=== PATIENT | male | born 1960 | race Caucasian/White ===

== ENCOUNTER 2019-01-24 05:26 | Emergency (ER) | payer BC, OTHER ==
[2019-01-24] MEDS: EPINEPHrine 0.3 MG/0.3 ML Pen Autoinjector IM ONE (05:52)
--- NOTE | 2019-01-24 05:53 | EDM.PDOC ---
ED HPI GENERAL MEDICAL PROBLEM - General Chief Complaint: General Stated Complaint: mouth swelling, lips, toungue Time Seen by Provider: 01/24/19 05:45 Source of Information: Reports: Patient History Limitations: Reports: No Limitations - History of Present Illness INITIAL COMMENTS - FREE TEXT/NARRATIVE: Patient is a 58-year-old who presented to the emergency room from [facility] secondary to swelling of the lower lip tongue and cheek patient states that this was noted by his coworkers and given 3 Benadryl's about an hour prior to transfer here the Benadryl did not seem to have any effect on it. So his supervisor grips decided to send him to the hospital for evaluation and treatment patient denies any allergies to any medication other than penicillin and tramadol patient denies taking any of this and says that today was a routine day for him he did not do anything different prior to going to work. Onset: Sudden Duration: Hour(s):, Getting Worse Location: Reports: Face Severity: Moderate Worsens with: Reports: None Treatments [employer]E [employer]ER: Reports: Other Medication(s) Other Treatments CONE CLE[employer]ER: benadryl 75mg - Related Data Allergies Allergy/AdvReac Type Severity Reaction Status Date / Time Penicillins Allergy Other Verified 01/24/19 05:29 tramadol AdvReac Nausea Verified 01/24/19 05:29 Home Meds: Home Meds Lisinopril 5 - 10 mg PO DAILY 10/08/14 [History] Cyclobenzaprine [Flexeril] 10 mg PO TID PRN #30 tablet 11/03/15 [Rx] Citalopram [Celexa] 20 mg PO DAILY 01/23/16 [History] Diazepam [Valium] 10 mg PO BID PRN 01/23/16 [History] Cephalexin [Keflex] 500 mg PO BID 5 Days #10 capsule 05/12/17 [Rx] predniSONE [Prednisone] 20 mg PO Q6HR 5 Days #20 tablet 01/24/19 [Rx] Past Medical History HEENT History: Reports: Impaired Vision, Other (See Below) Other HEENT History: Trifocals Cardiovascular History: Reports: Hypertension, Other (See Below) Other Cardiovascular History: Patient does not know his cholesterol status Respiratory History: Reports: None Gastrointestinal History: Reports: None Genitourinary History: Reports: None Musculoskeletal History: Reports: Back Pain, Chronic, Gout, Osteoarthritis, Other (See Below) Psychiatric History: Reports: Anxiety, Depression Endocrine/Metabolic History: Reports: None Hematologic History: Reports: None Immunologic History: Reports: None Oncologic (Cancer) History: Reports: None - Infectious Disease History Infectious Disease History: Reports: Chicken Pox, Measles, Mumps - Past Surgical History Head Surgeries/Procedures: Reports: None HEENT Surgical History: Reports: Oral Surgery, Other (See Below) GI Surgical History: Reports: Hernia, Abdominal, Hernia, Inguinal, Other (See Below) Male Surgical History: Reports: Circumcision, Other (See Below) Neurological Surgical History: Reports: None Musculoskeletal Surgical History: Reports: Arthroscopic Procedure, Shoulder Surgery, Other (See Below) Dermatological Surgical History: Reports: None - Past Imaging History Past Imaging History: Reports: None Social & Family History - Tobacco Use Smoking Status *Q: Former Smoker Used Tobacco, but Quit: Yes Month/Year Tobacco Last Used: 1994 - Caffeine Use Caffeine Use: Reports: None - Recreational Drug Use Recreational Drug Use: No - Living Situation & Occupation Living situation: Reports: , Alone Occupation: Employed ED ROS GENERAL - Review of Systems Review Of Systems: See Below HEENT: Reports: Other (Swelling of face left lower lip tongue and cheek) Respiratory: Reports: No Symptoms Cardiovascular: Reports: No Symptoms Endocrine: Reports: No Symptoms GI/Abdominal: Reports: No Symptoms : Reports: No Symptoms Musculoskeletal: Reports: No Symptoms Skin: Reports: No Symptoms Neurological: Reports: No Symptoms Psychiatric: Reports: No Symptoms Hematologic/Lymphatic: Reports: No Symptoms Immunologic: Reports: No Symptoms ED EXAM, GENERAL - Physical Exam Exam: See Below Exam Limited By: No Limitations General Appearance: Alert, WD/WN, No Apparent Distress Ears: Normal External Exam, Normal Canal, Hearing Grossly Normal, Normal TMs Ear Exam: Bilateral Ear: Auricle Normal, Canal Normal, TM normal Nose: Normal Inspection, Normal Mucosa, No Blood Throat/Mouth: No Airway Compromise, Inflammation (Lower lip called and cheek). No: Normal Lips Head: Atraumatic, Normocephalic Neck: Normal Inspection, Supple, Non-Tender, Full Range of Motion Respiratory/Chest: No Respiratory Distress, Lungs Clear, Normal Breath Sounds, No Accessory Muscle Use, Chest Non-Tender Cardiovascular: Normal Peripheral Pulses, Regular Rate, Rhythm, No Edema, No Gallop, No JVD, No Murmur, No Rub GI/Abdominal: Normal Bowel Sounds, Soft, Non-Tender, No Organomegaly, No Distention, No Abnormal Bruit, No Mass (Male) Exam: Deferred Rectal (Males) Exam: Deferred Back Exam: Normal Inspection, Full Range of Motion, NT Extremities: Normal Inspection, Normal Range of Motion, Non-Tender, Normal Capillary Refill, No Pedal Edema Neurological: Alert, Oriented, CN II-XII Intact, Normal Cognition, Normal Gait, Normal Reflexes, No Motor/Sensory Deficits Psychiatric: Normal Affect, Normal Mood Skin Exam: Warm, Dry, Intact, Normal Color, No Rash Lymphatic: No Adenopathy Course - Vital Signs Last Recorded V/S: Last Vital Signs Temp 97.8 F 01/24/19 06:08 Pulse 65 01/24/19 07:02 Resp 16 01/24/19 07:02 BP 103/64 01/24/19 06:08 Pulse Ox 95 01/24/19 07:02 - Orders/Labs/Meds Labs: Laboratory Tests 01/24/19 Range/Units 05:55 WBC 6.0 (4.0-10.2) K/uL RBC 3.90 L (4.33-5.41) M/uL Hgb 12.5 L (13.1-16.8) g/dL Hct 37.3 L (39.0-49.0) % MCV 95.6 (84.0-98.0) fL MCH 32.1 (28.2-33.3) pg MCHC 33.5 (31.7-36.0) g/dL RDW 12.6 (11.2-14.1) % Plt Count 113 L (150-350) K/uL Neut % (Auto) 57.4 (45.0-80.0) % Lymph % (Auto) 30.6 (10.0-50.0) % [place] % (Auto) 8.8 (2.0-14.0) % Eos % (Auto) 2.5 (0.0-5.0) % Baso % (Auto) 0.7 (0.0-2.0) % Neut # (Auto) 3.46 (1.40-7.00) K/uL Lymph # (Auto) 1.84 (0.50-3.50) K/uL [place] # (Auto) 0.53 (0.00-1.00) K/uL Eos # (Auto) 0.15 (0.00-0.50) K/uL Baso # (Auto) 0.04 (0.00-0.20) K/uL Meds: Medications Discontinued Medications Generic Name Dose Route Start Last Admin Trade Name Freq PRN Reason Stop Dose Admin Epinephrine HCl 0.3 mg 01/24/19 05:48 01/24/19 05:52 Epipen IM 01/24/19 05:49 0.3 mg ONETIME ONE Administration Triamcinolone Acetonide 40 mg 01/24/19 05:51 01/24/19 05:56 Kenalog-40 INJECT 01/24/19 05:52 40 mg ONETIME ONE Administration Departure - Departure Time of Disposition: 07:12 Disposition: Home, Self-Care 01 Condition: Fair Clinical Impression: Allergic reaction Qualifiers: Encounter type: initial encounter Qualified Code(s): T78.40XA - Allergy, unspecified, initial encounter - Discharge Information *PRESCRIPTION DRUG MONITORING PROGRAM REVIEWED*: No *COPY OF PRESCRIPTION DRUG MONITORING REPORT IN PATIENT CARSON: No Prescriptions: predniSONE [Prednisone] 20 mg PO Q6HR 5 Days #20 tablet Referrals: PCP,Not In Area [Primary Care Provider] - Forms: ED Department Discharge
[2019-01-24] MEDS: Triamcinolone Acetonide 40 MG/ML 1 ML MDV INJECT ONE (05:56)
[2019-01-24 06:09] VITALS: BP 103/64
[2019-01-24 07:03] VITALS: PULSE 65
== END 2019-01-24 07:28 | disposition home or self-care (01) ==
LOC: LL.ED 05:26
DX: T78.40XA Allergy, unspecified, initial encounter (principal); I10 Essential (primary) hypertension; F41.9 Anxiety disorder, unspecified; F32.9 Major depressive disorder, single episode, unspecified; M19.90 Unspecified osteoarthritis, unspecified site; M10.9 Gout, unspecified; Z87.891 Personal history of nicotine dependence; Z88.0 Allergy status to penicillin; Z88.5 Allergy status to narcotic agent; Z79.899 Other long term (current) drug therapy
CPT/HCPCS: 36415; 85025; 96372; 99285; A9270; J3301

== ENCOUNTER 2020-12-23 01:26 | Inpatient (IN) | payer BC, OTHER ==
[2020-12-23] MEDS ORDERED: Lactated Ringers 1,000 ML IV ONE ×3 (01:35→02:26)
[2020-12-23] MEDS ORDERED: Potassium Chloride Riders 10 MEQ in Premix Bag 1 BAG IV ONE (02:17)
[2020-12-23 02:25] LABS: ANION GAP 21.6 meq/L (7-15)
[2020-12-23] MEDS ORDERED: cefTRIAXone 2 GM Vial IVPUSH STA (02:35)
[2020-12-23 02:40] LABS: PTT,PARTIAL THROMBOPLSTIN TIME 21.1 SEC (24.5-32.8)
[2020-12-23] MEDS: Sodium Chloride 0.9% 10 ML Syringe FLUSH PRN (02:48)
--- NOTE | 2020-12-23 03:12 | EDM.PDOC ---
ED HPI GENERAL MEDICAL PROBLEM - General Chief Complaint: General Stated Complaint: passed out Time Seen by Provider: 12/23/20 01:26 Source of Information: Reports: Patient History Limitations: Reports: No Limitations - History of Present Illness INITIAL COMMENTS - FREE TEXT/NARRATIVE: Patient is brought by ambulance from the local [employer] with concerns of a syncopal episode while at work. 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 He does report that he drinks 2-3 alcoholic drinks a day. Otherwise he has some history of tendinitis in his hands and anxiety and denies any other major medical history. Reports over the past couple of days he has been "well" without any complaints. He has been eating and drinking appropriately. 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 While he was at work he has been trying to stay well-hydrated. He suddenly felt flushed and then became quite diaphoretic and was too weak to stand. He never lost consciousness. He did not hit his head. He has no head neck or back pain. He was profusely diaphoretic for EMS with low blood pressures. Upon arrival the patient really denies any complaints other than being very cold and chilled. He has no chest pain no shortness of breath or difficulty breathing. No cough or congestion. No abdominal pain. He did have some nausea when the episode of diaphoresis develop but he did not vomit. He denies any hematuria dysuria or urinary frequency. He has had normal amount of urination. He did have the sensation of having a bowel movement when he had this near syncopal episode. He has had no black tarry stools or diarrhea previously. He did receive his Covid vaccine. 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 - Related Data Allergies Allergy/AdvReac Type Severity Reaction Status Date / Time Penicillins Allergy Other Verified 12/23/20 01:41 tramadol AdvReac Nausea Verified 12/23/20 01:41 Home Meds: Home Meds Lisinopril 10 mg PO DAILY 10/08/14 [History] Cyclobenzaprine [Flexeril] 10 mg PO TID PRN #30 tablet 11/03/15 [Rx] Cholecalciferol (Vitamin D3) [Vitamin D3] 1,000 unit PO DAILY 12/23/20 [History] Citalopram Hydrobromide [Celexa] 40 mg PO DAILY 12/23/20 [History] Colchicine 0.6 mg PO DAILY PRN 12/23/20 [History] Fish Oil/[place]-3 Fatty Acids [Fish Oil 1,000 MG] 1 cap PO DAILY 12/23/20 [History] Multivitamin [Multivitamins] 1 tab PO DAILY 12/23/20 [History] Sour Galindo Extract [Tart Galindo Extract] 1 cap PO DAILY 12/23/20 [History] allopurinoL [Zyloprim] 100 mg PO DAILY 12/23/20 [History] diazePAM [Valium] 10 mg PO BID 12/23/20 [History] Magnesium Glycinate, Mag Oxide [Magnesium Glycinate] 120 mg PO DAILY #90 capsule 12/24/20 [Rx] Potassium Chloride [Klor-Con 10] 20 meq PO BID #12 tablet.er 12/24/20 [Rx] Past Medical History HEENT History: Reports: Impaired Vision, Other (See Below) Other HEENT History: Trifocals Cardiovascular History: Reports: Hypertension, Other (See Below) Other Cardiovascular History: Patient does not know his cholesterol status Respiratory History: Reports: None Gastrointestinal History: Reports: None Genitourinary History: Reports: None Musculoskeletal History: Reports: Back Pain, Chronic, Gout, Osteoarthritis, Other (See Below) Psychiatric History: Reports: Anxiety, Depression Endocrine/Metabolic History: Reports: None Hematologic History: Reports: None Immunologic History: Reports: None Oncologic (Cancer) History: Reports: None - Infectious Disease History Infectious Disease History: Reports: Chicken Pox, Measles, Mumps - Past Surgical History Head Surgeries/Procedures: Reports: None HEENT Surgical History: Reports: Oral Surgery, Other (See Below) GI Surgical History: Reports: Hernia, Abdominal, Hernia, Inguinal, Other (See Below) Male Surgical History: Reports: Circumcision, Other (See Below) Neurological Surgical History: Reports: None Musculoskeletal Surgical History: Reports: Arthroscopic Procedure, Shoulder Surgery, Other (See Below) Dermatological Surgical History: Reports: None - Past Imaging History Past Imaging History: Reports: None Social & Family History - Tobacco Use Tobacco Use Status *Q: Former Tobacco User Used Tobacco, but Quit: Yes Month/Year Tobacco Last Used: 05/1999 - Caffeine Use Caffeine Use: Reports: Coffee - Living Situation & Occupation Living situation: Reports: , Alone Occupation: Employed ED ROS GENERAL - Review of Systems Review Of Systems: Comprehensive ROS is negative, except as noted in HPI. ED EXAM, GENERAL - Physical Exam Exam: See Below Free Text/Narrative:: This patient is alert appropriate. Appears in no acute distress. Although is profoundly diaphoretic with generalized horriphilation throughout his body peripherally and centrally with weak peripheral pulses without cyanosis. Course - Vital Signs Last Recorded V/S: Last Vital Signs Temp 98.7 F 12/24/20 07:13 Pulse 70 12/24/20 07:13 Resp 18 12/24/20 07:13 BP 160/65 H 12/24/20 09:33 Pulse Ox 95 12/24/20 07:13 - Orders/Labs/Meds Labs: Laboratory Tests 12/23/20 12/23/20 12/23/20 Range/Units 01:35 01:35 01:35 WBC 7.7 (4.0-10.2) K/uL RBC 4.71 (4.33-5.41) M/uL Hgb 15.2 D (13.1-16.8) g/dL Hct 42.6 (39.0-49.0) % MCV 90.4 D (84.0-98.0) fL MCH 32.3 (28.2-33.3) pg MCHC 35.7 (31.7-36.0) g/dL RDW 12.3 (11.2-14.1) % Plt Count 206 D (150-350) K/uL Neut % (Auto) 62.3 (45.0-80.0) % Lymph % (Auto) 27.4 (10.0-50.0) % [place] % (Auto) 7.8 (2.0-14.0) % Eos % (Auto) 2.0 (0.0-5.0) % Baso % (Auto) 0.5 (0.0-2.0) % Neut # (Auto) 4.79 (1.40-7.00) K/uL Lymph # (Auto) 2.11 (0.50-3.50) K/uL [place] # (Auto) 0.60 (0.00-1.00) K/uL Eos # (Auto) 0.15 (0.00-0.50) K/uL Baso # (Auto) 0.04 (0.00-0.20) K/uL PT (9.5-12.0) SEC INR APTT (24.5-32.8) SEC D-Dimer, Quantitative > 5000 H (0-400) ng/mL Sodium 134 L (136-145) mmol/L Potassium 3.0 L (3.5-5.1) mmol/L Chloride 91 L (98-107) mmol/L Carbon Dioxide 24.4 (21.0-32.0) mmol/L Anion Gap 21.6 H (7-15) meq/L BUN 23 H (7-18) mg/dL Creatinine 3.66 H* (0.51-1.17) mg/dL Est Cr Clr Drug Dosing 23.50 mL/min Estimated GFR (MDRD) 17 mL/min Glucose 180 H (70-99) mg/dL Lactic Acid (0.4-2.0) mmol/L Uric Acid (2.6-7.2) mg/dL Calcium 10.4 H (8.5-10.1) mg/dL Magnesium (1.8-2.4) mg/dL Total Bilirubin 0.8 (0.2-1.0) mg/dL AST 96 H (15-37) U/L ALT 76 (12-78) U/L Alkaline Phosphatase 58 (46-116) IU/L Creatine Kinase (26-308) U/L Troponin I High Sens 84 H* (<=76) ng/L C-Reactive Protein 1.1 H (<=0.9) mg/dL Total Protein 7.5 (6.4-8.2) g/dL Albumin 4.2 (3.4-5.0) g/dL Specimen Type Urine Color Urine Appearance Urine pH (5.0-9.0) Ur Specific [place] (1.005-1.030) Urine Protein (NEGATIVE) mg/dL Urine Glucose (UA) (NEGATIVE) mg/dL Urine Ketones (NEGATIVE) mg/dL Urine Occult Blood (NEGATIVE) Urine Nitrite (NEGATIVE) Urine Bilirubin (NEGATIVE) Urine Urobilinogen (0.2-1.0) E.U./dL Ur Leukocyte Esterase (NEGATIVE) Urine RBC /HPF Urine WBC /HPF Ur Epithelial Cells /LPF Amorphous Sediment (0/HPF) /HPF Urine Bacteria (NONE TO FEW) /HPF Urine Opiates Screen (NEGATIVE) Ur Buprenorphine Scrn (NEGATIVE) Ur Oxycodone Screen (NEGATIVE) Ur EDDP (Meth Metab) (NEGATIVE) Ur Barbiturates Screen (NEGATIVE) Ur Tricyclics Screen (NEGATIVE) Ur Amphetamine Screen (NEGATIVE) U Methamphetamines Scrn (NEGATIVE) Urine MDMA Screen (NEGATIVE) U Benzodiazepines Scrn (NEGATIVE) U Cocaine Metab Screen (NEGATIVE) U Marijuana (THC) Screen (NEGATIVE) Ethyl Alcohol 0.083 H (0.000-0.080) g/dL SARS-CoV-2 RNA (GLEN) (NEGATIVE) 12/23/20 12/23/20 12/23/20 Range/Units 01:35 01:35 01:35 WBC (4.0-10.2) K/uL RBC (4.33-5.41) M/uL Hgb (13.1-16.8) g/dL Hct (39.0-49.0) % MCV (84.0-98.0) fL MCH (28.2-33.3) pg MCHC (31.7-36.0) g/dL RDW (11.2-14.1) % Plt Count (150-350) K/uL Neut % (Auto) (45.0-80.0) % Lymph % (Auto) (10.0-50.0) % [place] % (Auto) (2.0-14.0) % Eos % (Auto) (0.0-5.0) % Baso % (Auto) (0.0-2.0) % Neut # (Auto) (1.40-7.00) K/uL Lymph # (Auto) (0.50-3.50) K/uL [place] # (Auto) (0.00-1.00) K/uL Eos # (Auto) (0.00-0.50) K/uL Baso # (Auto) (0.00-0.20) K/uL PT 9.7 (9.5-12.0) SEC INR 1.0 APTT 21.1 L (24.5-32.8) SEC D-Dimer, Quantitative (0-400) ng/mL Sodium (136-145) mmol/L Potassium (3.5-5.1) mmol/L Chloride (98-107) mmol/L Carbon Dioxide (21.0-32.0) mmol/L Anion Gap (7-15) meq/L BUN (7-18) mg/dL Creatinine (0.51-1.17) mg/dL Est Cr Clr Drug Dosing mL/min Estimated GFR (MDRD) mL/min Glucose (70-99) mg/dL Lactic Acid 6.8 H (0.4-2.0) mmol/L Uric Acid (2.6-7.2) mg/dL Calcium (8.5-10.1) mg/dL Magnesium 1.6 L (1.8-2.4) mg/dL Total Bilirubin (0.2-1.0) mg/dL AST (15-37) U/L ALT (12-78) U/L Alkaline Phosphatase (46-116) IU/L Creatine Kinase (26-308) U/L Troponin I High Sens (<=76) ng/L C-Reactive Protein (<=0.9) mg/dL Total Protein (6.4-8.2) g/dL Albumin (3.4-5.0) g/dL Specimen Type Urine Color Urine Appearance Urine pH (5.0-9.0) Ur Specific [place] (1.005-1.030) Urine Protein (NEGATIVE) mg/dL Urine Glucose (UA) (NEGATIVE) mg/dL Urine Ketones (NEGATIVE) mg/dL Urine Occult Blood (NEGATIVE) Urine Nitrite (NEGATIVE) Urine Bilirubin (NEGATIVE) Urine Urobilinogen (0.2-1.0) E.U./dL Ur Leukocyte Esterase (NEGATIVE) Urine RBC /HPF Urine WBC /HPF Ur Epithelial Cells /LPF Amorphous Sediment (0/HPF) /HPF Urine Bacteria (NONE TO FEW) /HPF Urine Opiates Screen (NEGATIVE) Ur Buprenorphine Scrn (NEGATIVE) Ur Oxycodone Screen (NEGATIVE) Ur EDDP (Meth Metab) (NEGATIVE) Ur Barbiturates Screen (NEGATIVE) Ur Tricyclics Screen (NEGATIVE) Ur Amphetamine Screen (NEGATIVE) U Methamphetamines Scrn (NEGATIVE) Urine MDMA Screen (NEGATIVE) U Benzodiazepines Scrn (NEGATIVE) U Cocaine Metab Screen (NEGATIVE) U Marijuana (THC) Screen (NEGATIVE) Ethyl Alcohol (0.000-0.080) g/dL SARS-CoV-2 RNA (GLEN) (NEGATIVE) 12/23/20 12/23/20 12/23/20 Range/Units 01:35 01:35 03:10 WBC (4.0-10.2) K/uL RBC (4.33-5.41) M/uL Hgb (13.1-16.8) g/dL Hct (39.0-49.0) % MCV (84.0-98.0) fL MCH (28.2-33.3) pg MCHC (31.7-36.0) g/dL RDW (11.2-14.1) % Plt Count (150-350) K/uL Neut % (Auto) (45.0-80.0) % Lymph % (Auto) (10.0-50.0) % [place] % (Auto) (2.0-14.0) % Eos % (Auto) (0.0-5.0) % Baso % (Auto) (0.0-2.0) % Neut # (Auto) (1.40-7.00) K/uL Lymph # (Auto) (0.50-3.50) K/uL [place] # (Auto) (0.00-1.00) K/uL Eos # (Auto) (0.00-0.50) K/uL Baso # (Auto) (0.00-0.20) K/uL PT (9.5-12.0) SEC INR APTT (24.5-32.8) SEC D-Dimer, Quantitative (0-400) ng/mL Sodium (136-145) mmol/L Potassium (3.5-5.1) mmol/L Chloride (98-107) mmol/L Carbon Dioxide (21.0-32.0) mmol/L Anion Gap (7-15) meq/L BUN (7-18) mg/dL Creatinine (0.51-1.17) mg/dL Est Cr Clr Drug Dosing mL/min Estimated GFR (MDRD) mL/min Glucose (70-99) mg/dL Lactic Acid (0.4-2.0) mmol/L Uric Acid 11.3 H (2.6-7.2) mg/dL Calcium (8.5-10.1) mg/dL Magnesium (1.8-2.4) mg/dL Total Bilirubin (0.2-1.0) mg/dL AST (15-37) U/L ALT (12-78) U/L Alkaline Phosphatase (46-116) IU/L Creatine Kinase 2067 H (26-308) U/L Troponin I High Sens (<=76) ng/L C-Reactive Protein (<=0.9) mg/dL Total Protein (6.4-8.2) g/dL Albumin (3.4-5.0) g/dL Specimen Type Urinvoid Urine Color Yellow Urine Appearance Slightly cloudy Urine pH 5.5 (5.0-9.0) Ur Specific [place] 1.015 (1.005-1.030) Urine Protein 30 H (NEGATIVE) mg/dL Urine Glucose (UA) Negative (NEGATIVE) mg/dL Urine Ketones 15 H (NEGATIVE) mg/dL Urine Occult Blood Small H (NEGATIVE) Urine Nitrite Negative (NEGATIVE) Urine Bilirubin Negative (NEGATIVE) Urine Urobilinogen 0.2 (0.2-1.0) E.U./dL Ur Leukocyte Esterase Negative (NEGATIVE) Urine RBC 0-5 /HPF Urine WBC 0-5 /HPF Ur Epithelial Cells Few /LPF Amorphous Sediment Few (0/HPF) /HPF Urine Bacteria Few (NONE TO FEW) /HPF Urine Opiates Screen (NEGATIVE) Ur Buprenorphine Scrn (NEGATIVE) Ur Oxycodone Screen (NEGATIVE) Ur EDDP (Meth Metab) (NEGATIVE) Ur Barbiturates Screen (NEGATIVE) Ur Tricyclics Screen (NEGATIVE) Ur Amphetamine Screen (NEGATIVE) U Methamphetamines Scrn (NEGATIVE) Urine MDMA Screen (NEGATIVE) U Benzodiazepines Scrn (NEGATIVE) U Cocaine Metab Screen (NEGATIVE) U Marijuana (THC) Screen (NEGATIVE) Ethyl Alcohol (0.000-0.080) g/dL SARS-CoV-2 RNA (GLEN) (NEGATIVE) 12/23/20 12/23/20 12/23/20 Range/Units 03:10 03:25 03:45 WBC (4.0-10.2) K/uL RBC (4.33-5.41) M/uL Hgb (13.1-16.8) g/dL Hct (39.0-49.0) % MCV (84.0-98.0) fL MCH (28.2-33.3) pg MCHC (31.7-36.0) g/dL RDW (11.2-14.1) % Plt Count (150-350) K/uL Neut % (Auto) (45.0-80.0) % Lymph % (Auto) (10.0-50.0) % [place] % (Auto) (2.0-14.0) % Eos % (Auto) (0.0-5.0) % Baso % (Auto) (0.0-2.0) % Neut # (Auto) (1.40-7.00) K/uL Lymph # (Auto) (0.50-3.50) K/uL [place] # (Auto) (0.00-1.00) K/uL Eos # (Auto) (0.00-0.50) K/uL Baso # (Auto) (0.00-0.20) K/uL PT (9.5-12.0) SEC INR APTT (24.5-32.8) SEC D-Dimer, Quantitative (0-400) ng/mL Sodium (136-145) mmol/L Potassium (3.5-5.1) mmol/L Chloride (98-107) mmol/L Carbon Dioxide (21.0-32.0) mmol/L Anion Gap (7-15) meq/L BUN (7-18) mg/dL Creatinine (0.51-1.17) mg/dL Est Cr Clr Drug Dosing mL/min Estimated GFR (MDRD) mL/min Glucose (70-99) mg/dL Lactic Acid 5.8 H (0.4-2.0) mmol/L Uric Acid (2.6-7.2) mg/dL Calcium (8.5-10.1) mg/dL Magnesium (1.8-2.4) mg/dL Total Bilirubin (0.2-1.0) mg/dL AST (15-37) U/L ALT (12-78) U/L Alkaline Phosphatase (46-116) IU/L Creatine Kinase (26-308) U/L Troponin I High Sens 74 (<=76) ng/L C-Reactive Protein (<=0.9) mg/dL Total Protein (6.4-8.2) g/dL Albumin (3.4-5.0) g/dL Specimen Type Urine Color Urine Appearance Urine pH (5.0-9.0) Ur Specific [place] (1.005-1.030) Urine Protein (NEGATIVE) mg/dL Urine Glucose (UA) (NEGATIVE) mg/dL Urine Ketones (NEGATIVE) mg/dL Urine Occult Blood (NEGATIVE) Urine Nitrite (NEGATIVE) Urine Bilirubin (NEGATIVE) Urine Urobilinogen (0.2-1.0) E.U./dL Ur Leukocyte Esterase (NEGATIVE) Urine RBC /HPF Urine WBC /HPF Ur Epithelial Cells /LPF Amorphous Sediment (0/HPF) /HPF Urine Bacteria (NONE TO FEW) /HPF Urine Opiates Screen Negative (NEGATIVE) Ur Buprenorphine Scrn Negative (NEGATIVE) Ur Oxycodone Screen Negative (NEGATIVE) Ur EDDP (Meth Metab) Negative (NEGATIVE) Ur Barbiturates Screen Negative (NEGATIVE) Ur Tricyclics Screen Negative (NEGATIVE) Ur Amphetamine Screen Negative (NEGATIVE) U Methamphetamines Scrn Negative (NEGATIVE) Urine MDMA Screen Negative (NEGATIVE) U Benzodiazepines Scrn Positive H (NEGATIVE) U Cocaine Metab Screen Negative (NEGATIVE) U Marijuana (THC) Screen Positive H (NEGATIVE) Ethyl Alcohol (0.000-0.080) g/dL SARS-CoV-2 RNA (GLEN) (NEGATIVE) 12/23/20 Range/Units 04:30 WBC (4.0-10.2) K/uL RBC (4.33-5.41) M/uL Hgb (13.1-16.8) g/dL Hct (39.0-49.0) % MCV (84.0-98.0) fL MCH (28.2-33.3) pg MCHC (31.7-36.0) g/dL RDW (11.2-14.1) % Plt Count (150-350) K/uL Neut % (Auto) (45.0-80.0) % Lymph % (Auto) (10.0-50.0) % [place] % (Auto) (2.0-14.0) % Eos % (Auto) (0.0-5.0) % Baso % (Auto) (0.0-2.0) % Neut # (Auto) (1.40-7.00) K/uL Lymph # (Auto) (0.50-3.50) K/uL [place] # (Auto) (0.00-1.00) K/uL Eos # (Auto) (0.00-0.50) K/uL Baso # (Auto) (0.00-0.20) K/uL PT (9.5-12.0) SEC INR APTT (24.5-32.8) SEC D-Dimer, Quantitative (0-400) ng/mL Sodium (136-145) mmol/L Potassium (3.5-5.1) mmol/L Chloride (98-107) mmol/L Carbon Dioxide (21.0-32.0) mmol/L Anion Gap (7-15) meq/L BUN (7-18) mg/dL Creatinine (0.51-1.17) mg/dL Est Cr Clr Drug Dosing mL/min Estimated GFR (MDRD) mL/min Glucose (70-99) mg/dL Lactic Acid (0.4-2.0) mmol/L Uric Acid (2.6-7.2) mg/dL Calcium (8.5-10.1) mg/dL Magnesium (1.8-2.4) mg/dL Total Bilirubin (0.2-1.0) mg/dL AST (15-37) U/L ALT (12-78) U/L Alkaline Phosphatase (46-116) IU/L Creatine Kinase (26-308) U/L Troponin I High Sens (<=76) ng/L C-Reactive Protein (<=0.9) mg/dL Total Protein (6.4-8.2) g/dL Albumin (3.4-5.0) g/dL Specimen Type Urine Color Urine Appearance Urine pH (5.0-9.0) Ur Specific [place] (1.005-1.030) Urine Protein (NEGATIVE) mg/dL Urine Glucose (UA) (NEGATIVE) mg/dL Urine Ketones (NEGATIVE) mg/dL Urine Occult Blood (NEGATIVE) Urine Nitrite (NEGATIVE) Urine Bilirubin (NEGATIVE) Urine Urobilinogen (0.2-1.0) E.U./dL Ur Leukocyte Esterase (NEGATIVE) Urine RBC /HPF Urine WBC /HPF Ur Epithelial Cells /LPF Amorphous Sediment (0/HPF) /HPF Urine Bacteria (NONE TO FEW) /HPF Urine Opiates Screen (NEGATIVE) Ur Buprenorphine Scrn (NEGATIVE) Ur Oxycodone Screen (NEGATIVE) Ur EDDP (Meth Metab) (NEGATIVE) Ur Barbiturates Screen (NEGATIVE) Ur Tricyclics Screen (NEGATIVE) Ur Amphetamine Screen (NEGATIVE) U Methamphetamines Scrn (NEGATIVE) Urine MDMA Screen (NEGATIVE) U Benzodiazepines Scrn (NEGATIVE) U Cocaine Metab Screen (NEGATIVE) U Marijuana (THC) Screen (NEGATIVE) Ethyl Alcohol (0.000-0.080) g/dL SARS-CoV-2 RNA (GLEN) Negative (NEGATIVE) Meds: Medications Discontinued Medications Generic Name Dose Route Start Last Admin Trade Name Freq PRN Reason Stop Dose Admin Ceftriaxone Sodium 2 gm 12/23/20 02:35 12/23/20 02:47 Ceftriaxone 2 Gm Vial IVPUSH 12/23/20 02:36 2 gm NOW STA Administration Cholecalciferol 25 mcg 12/24/20 18:00 Cholecalciferol (Vitamin D3) 25 Mcg Tab PO DAILY RADHA Citalopram Hydrobromide 40 mg 12/23/20 18:00 12/24/20 07:17 Citalopram 20 Mg Tab PO 40 mg DAILY RADHA Administration Diazepam 10 mg 12/23/20 18:00 12/24/20 07:18 Diazepam 5 Mg Tab PO 12/26/20 01:00 10 mg BID RADHA Administration Diazepam 5 mg 12/24/20 08:00 Diazepam 5 Mg Tab PO 12/24/20 08:01 ONETIME ONE Fish Oil 1 gm 12/24/20 08:00 12/24/20 07:17 Fish Oil/[place]-3 Fatty Acids 1 Gm Cap PO 1 gm DAILY RADHA Administration Folic Acid 1 mg 12/23/20 08:00 12/24/20 07:17 Folic Acid 1 Mg Tab PO 1 mg DAILY RADHA Administration Lactated Ringer's 1,000 mls @ 1,000 mls/hr 12/23/20 01:35 12/23/20 02:46 Ringers, Lactated IV 12/23/20 02:34 1,000 mls/hr .BOLUS ONE Administration Lactated Ringer's 1,000 mls @ 1,000 mls/hr 12/23/20 01:42 12/23/20 02:46 Ringers, Lactated IV 12/23/20 02:41 1,000 mls/hr .BOLUS ONE Administration Potassium Chloride 10 meq/ 50 mls @ 50 mls/hr 12/23/20 02:17 12/23/20 02:47 Premix IV 12/23/20 03:16 50 mls/hr ONETIME ONE Administration Lactated Ringer's 1,000 mls @ 1,000 mls/hr 12/23/20 02:26 12/23/20 02:47 Ringers, Lactated IV 12/23/20 03:25 1,000 mls/hr .BOLUS ONE Administration Lactated Ringer's 1,000 mls @ 200 mls/hr 12/23/20 04:45 12/23/20 04:00 Ringers, Lactated IV 200 mls/hr ASDIRECTED RADHA Administration Potassium Chloride/Sodium Chloride 1,000 mls @ 250 mls/hr 12/23/20 05:30 12/23/20 06:06 Normal Saline With 20 Meq Kcl IV 250 mls/hr ASDIRECTED RADHA Administration Sodium Chloride 1,000 mls @ 100 mls/hr 12/23/20 10:30 12/23/20 14:59 Normal Saline IV 250 mls/hr ASDIRECTED RADHA Administration Magnesium Sulfate/Dextrose 1 100 mls @ 100 mls/hr 12/23/20 17:19 12/23/20 18:12 gm/ Premix IV 12/23/20 18:18 100 mls/hr ONETIME ONE Administration Magnesium Sulfate/Dextrose 1 100 mls @ 100 mls/hr 12/23/20 21:00 12/23/20 20:52 gm/ Premix IV 12/23/20 21:59 100 mls/hr ONETIME ONE Administration Sodium Chloride 1,000 mls @ 60 mls/hr 12/23/20 21:45 12/23/20 22:25 Normal Saline IV 60 mls/hr ASDIRECTED RADHA Administration Magnesium Sulfate/Dextrose 1 gm in 100 mls @ 100 mls/hr 12/24/20 09:30 12/24/20 09:33 Magnesium Sulfate In D5w 1 Gm/100 Ml IV 12/24/20 10:29 100 mls/hr ONETIME ONE Administration Iopamidol 100 ml 12/24/20 07:46 12/24/20 09:00 Iopamidol 755 Mg/Ml 100 Ml Bottle IVPUSH 12/24/20 07:47 100 ml ONETIME ONE Administration Lisinopril 10 mg 12/24/20 09:05 12/24/20 09:33 Lisinopril 10 Mg Tab PO 12/24/20 09:06 10 mg ONETIME ONE Administration Loperamide HCl 4 mg 12/23/20 17:59 12/23/20 18:19 Loperamide 2 Mg Tab PO 12/23/20 18:00 4 mg ONETIME ONE Administration Lorazepam 1 mg 12/23/20 05:35 Lorazepam 2 Mg/Ml Sdv IVPUSH Q4H PRN Withdrawal Symptoms Magnesium Oxide 800 mg 12/23/20 08:00 12/23/20 07:17 Magnesium Oxide 400 Mg Tab PO 800 mg DAILY RADHA Administration Multivitamins/Minerals/Vitamin C 1 tab 12/23/20 08:00 12/24/20 07:17 Multivitamin Tab PO 1 tab DAILY RADHA Administration Multivitamins/Minerals/Vitamin C 1 tab 12/24/20 08:00 12/24/20 09:09 Multivitamin Tab PO Not Given DAILY RADHA Non-Formulary Medication 1 cap 12/24/20 08:00 Sour [place] Extract [Tart Gal[place] Extract] PO DAILY RADHA Ondansetron HCl 4 mg 12/23/20 05:36 Ondansetron 4 Mg/2 Ml Sdv IVPUSH Q6H PRN Nausea/Vomiting Potassium Chloride 40 meq 12/24/20 09:06 12/24/20 09:33 Potassium Chloride 10 Meq Tab.Er PO 12/24/20 09:07 40 meq ONETIME ONE Administration Potassium Chloride 40 meq 12/24/20 11:30 12/24/20 11:59 Potassium Chloride 20 Meq Tab.Er PO 12/24/20 11:31 40 meq ONETIME ONE Administration Sodium Chloride 10 ml 12/23/20 01:34 12/24/20 07:20 Sodium Chloride 0.9% 10 Ml Syringe FLUSH 10 ml ASDIRECTED PRN Administration Keep Vein Open Thiamine HCl 100 mg 12/23/20 08:00 12/24/20 07:17 Thiamine 100 Mg Tab PO 100 mg DAILY RADHA Administration - Re-Assessments/Exams Free Text/Narrative Re-Assessment/Exam: Upon arrival the patient is clearly hypotensive. IV was established. Labs were drawn to include blood cultures x2. 3 L bolus of lactated Ringer's was initiated for 30 mill per kilogram resuscitation in the presence of possible sepsis. Ceftriaxone 2 g IV push for concerns of possible sepsis. Bedside ultrasound completed and reviewed extemporaneously by myself shows a completely collapsed inferior vena cava for concerns of severe hypovolemic shock unknown cause at this time. Fluid resuscitation as above. Laboratory evaluation with a normal white blood cell count of 7.7 hemoglobin of 15.2 which is up from his baseline of 12 and I think this is most likely hemoconcentration platelet count 206. PT/INR unremarkable. D-dimer greater than 5000. Sodium 134, potassium 3.0, chloride 91, anion gap 21.6, BUN 23 creatinine 3.66 which is up on his baseline of 1 Glucose 180 Lactic acid 6.8 which I do not feel that this is from sepsis and is most likely due to severe dehydration and hypovolemia. Although blood cultures have been obtained he was given a dose of Rocephin. CPK 2067 Troponin high-sensitivity 86 initially and at 2 hours 74 with a negative delta. This mild elevation without chest pain and a normal EKG is most likely due to cardiac strain and hypovolemia in the presence of hypovolemic shock. C-reactive protein 1.1. Urinalysis which was only able to obtain after about 3 L of fluid small amount of blood and 15 for ketones normal specific gravity. Noninfectious appearing. The patient does not have any chest pain he is not short of breath. He is not tachycardic tachypneic or hypoxic. Although he does have a quite elevated D- dimer. I am unable to complete his CT for PE protocol of his chest as he has acute kidney injury with severe elevation of his creatinine at 3.6. I did complete and review extemporaneously by myself bedside ultrasound of the lower extremities I did not identify any DVT in the lower extremities. A FAST exam of the abdomen shows no free fluid right upper left upper and posterior of the bladder. Pericardial window was difficult as we do not have a phased-array probe but I do not see a pericardial effusion. The clinical picture of this patient's presentation clearly has hypovolemic shock. I am unsure of the nature of this. I did visit with the patient he has been treating himself recently in the last week for a gout attack to his right foot. He has started allopurinol indomethacin and colchicine. This could be the aspect of why he has such elevation in his creatinine although it does not determine the presence of hypovolemic shock. I think he is minimal lysing his alcohol use in the past as he is currently at work states he has not had anything to drink and his alcohol is elevated at 0.08. Although syncope hypotension can be an aspect of a pulmonary embolism and I am unable to rule this out at this time due to the patient's creatinine. I called and spoke with DR. Navarro at the ED in [facility]. HPI ER course findings and concerns were related to this doctor. I am unable to screen him for PE. Although this patient really does not have any risk factors and does not fit the clinical picture other than the syncope and hypotension. He is clearly in hypovolemic shock in the presence of a collapsed inferior vena cava which has improved to a normal inferior vena cava following fluid resuscitation and his blood pressure is improved his skin is now cool pink and dry and his diaphoresis has resolved. Dr. Navarro does not feel that this patient warrants transfer at this time and does not require evaluation for a PE. He refused the patient in transfer as they have no beds at this time and the clinical suspicion is very low for a PE. No new orders. I spoke with [facility] and they have no beds either. I would agree with the referral provider that it is unlikely for this patient to have a PE and does not fit the clinical picture. We will admit him to the hospital here under acute care services. We will monitor his resuscitation. He clearly has some rhabdomyolysis hypovolemic shock and lactic acidosis which are all related multifactorially to the presence of acute kidney injury and unknown hypovolemic shock. We will replace his electrolytes. He is vitally stable at this time. He actually feels quite a bit better and would like to leave but I do not think this is appropriate we will continue high volume resuscitation in the hope of 2-300 mils of urine output every 2 hours to protect the kidneys from rhabdomyolysis. He is covered with this plan and his questions are answered. Departure - Departure Time of Disposition: 03:01 Disposition: Admitted As Inpatient 67 Clinical Impression: Syncope and collapse, Lactic acidosis, MALAIKA (acute kidney injury), Hypokalemia, Hypomagnesemia, Severe dehydration, Elevated d-dimer Acute alcohol intoxication Qualifiers: Complication of substance-induced condition: uncomplicated Qualified Code(s): F10.920 - Alcohol use, unspecified with intoxication, uncomplicated Hypotension Qualifiers: Hypotension type: hypotension due to hypovolemia Qualified Code(s): I95.89 - Other hypotension Rhabdomyolysis Qualifiers: Rhabdomyolysis type: non-traumatic Qualified Code(s): M62.82 - Rhabdomyolysis - Discharge Information Sepsis Event Note (ED) - Evaluation Sepsis Screening Result: No Definite Risk - Problem List & Annotations (1) Syncope and collapse SNOMED Code(s): 370253398 Code(s): R55 - SYNCOPE AND COLLAPSE Status: Acute Priority: High Annotation/Comment:: Working in very hot environment at [facility] [employer]. Suspect comb ination of heat illness and dehydration. Although his D Dimer is elevated he does not have the hallmark signs of chest pain shortness of breath hypoxia tachypnea and tachycardia. We will consider a PE scan once kidney function has improved or transfer if the symptoms do develop or nonresponsive hypokalemia. Monitor closely. Telemetry. (2) Lactic acidosis SNOMED Code(s): 02950808 Code(s): E87.2 - ACIDOSIS Status: Acute Priority: High Annotation/Comment:: His lactic acidosis is most likely due to the severe hypovolemic shock. Procalcitonin is pending. CRP is negative. White blood cell count is normal. I do not see any signs of sepsis. Urinalysis is negative. Continue to monitor closely. (3) MALAIKA (acute kidney injury) SNOMED Code(s): 45590366, 96046557 Code(s): N17.9 - ACUTE KIDNEY FAILURE, UNSPECIFIED Status: Acute Priority: High Annotation/Comment:: Initial creatinine of 3.6. Could be multifactorial in the presence of severe hypovolemic shock dehydration as well as the recent increase use of allopurinol indomethacin as well as colchicine due to his gout attacks. His uric acid in the emergency department is actually 11.4. Which he really needs some long-term management with allopurinol. Although we will hold these medicines at this time due to his acute kidney injury. And no signs of acute gouty attack. (4) Acute alcohol intoxication SNOMED Code(s): 51981427, 73305404 Code(s): F10.929 - ALCOHOL USE, UNSPECIFIED WITH INTOXICATION, UNSPECIFIED Status: Acute Annotation/Comment:: Patient admits to daily alcohol usage although I feel that this is minimized. His alcohol at this time coming from work is 0.08. He shows no signs of delirium or tremors at this time. We will monitor him with CIWA scoring. Ativan as needed for withdrawals. We will also start him on a daily oral multivitamin banana pack. Consider CD counseling on discharge. Qualifiers: Complication of substance-induced condition: uncomplicated Qualified Code(s): F10.920 - Alcohol use, unspecified with intoxication, uncomplicated (5) Hypokalemia SNOMED Code(s): 26854072 Code(s): E87.6 - HYPOKALEMIA Status: Acute Priority: High Annotation/Comment:: Initial potassium is minimally low at 3.0. This could be due to long-term alcohol usage as well as poor oral intake. We will replace him initially IV until he responds. And then we will monitor and replace orally. (6) Hypomagnesemia SNOMED Code(s): 311956458 Code(s): E83.42 - HYPOMAGNESEMIA Status: Acute Priority: Medium Annotation/Comment:: Magnesium 1.6 upon admission will replace. and monitor. (7) Elevated d-dimer SNOMED Code(s): 524616431 Code(s): R79.89 - OTHER SPECIFIED ABNORMAL FINDINGS OF BLOOD CHEMISTRY Status: Acute Priority: High Annotation/Comment:: The elevated D-dimer is most likely unknown at this time. Ultrasound completed by myself and reviewed did not show any signs of lower extremity DVT. Clinical exam does not find any DVT either. He has no hallmarks signs of pulmonary embolism. Although he does not have any risk factors primarily either. Once his creatinine has normalized we will consider CT PE at that time or transfer for a VQ scan if the clinical picture is concerning for a pulmonary embolism. (8) Hypotension SNOMED Code(s): 77101850 Code(s): I95.9 - HYPOTENSION, UNSPECIFIED Status: Acute Priority: High Annotation/Comment:: Hypotension most likely from severe dehydration and hypovolemic shock. Initially has resolved in the emergency department with good blood pressures in the 130s systolically. We will continue aggressive fluid resuscitation at 250 mils an hour for the prevention of acute kidney injury from rhabdomyolysis. We will monitor his electrolytes and his blood pressures closely. Do not see any signs of sepsis at this time. He was covered with an initial dose of Rocephin in the emergency department. Slight blood cell count is normal as well as his CRP. Procalcitonin is pending. Blood cultures are pending. No signs of infection on the CT of the chest in the lungs nor any signs of infection in his urine.. Qualifiers: Hypotension type: hypotension due to hypovolemia Qualified Code(s): I95.89 - Other hypotension; E86.1 - Hypovolemia (9) Anxiety SNOMED Code(s): 13304301 Code(s): F41.9 - ANXIETY DISORDER, UNSPECIFIED Status: Chronic Priority: Medium Annotation/Comment:: No sign of anxiety in the emergency department. He is on Valium chronically for his anxiety. He is also looking at getting a medical marijuana card. I do not see any medication such as SSRIs or other antidepressants which would be more appropriate for long-term management of anxiety. Stable at this time consider follow-up with primary care. (10) Hypertension SNOMED Code(s): 15617753 Code(s): I10 - ESSENTIAL (PRIMARY) HYPERTENSION Status: Chronic Priority: Medium Annotation/Comment:: We will hold this patient's lisinopril at this time due to hypotension as well as acute kidney injury. We will monitor closely. Qualifiers: Hypertension type: primary hypertension Qualified Code(s): I10 - Essential (primary) hypertension (11) Mixed anxiety depressive disorder SNOMED Code(s): 433294770 Code(s): F41.8 - OTHER SPECIFIED ANXIETY DISORDERS Status: Chronic Priority: Medium Annotation/Comment:: Stable. Continue to observe closely with his regular provider (12) Gout SNOMED Code(s): 09517303 Code(s): M10.9 - GOUT, UNSPECIFIED Status: Chronic Priority: Medium Annotation/Comment:: Patient recently had a acute gouty attack. He has been placed on allopurinol indomethacin as well as colchicine. This could be an aspect of his acute kidney injury as well. His uric acid is quite elevated 11.4. At this time we will hold these medications he is not exhibiting any signs of an acute gouty attack. Considered reinitiation of the allopurinol upon discharge once clinical situation has improved. Qualifiers: Gout site: unspecified site Gout etiology: unspecified cause Chronicity: unspecified Qualified Code(s): M10.9 - Gout, unspecified (13) Rhabdomyolysis SNOMED Code(s): 680330693 Code(s): M62.82 - RHABDOMYOLYSIS Status: Acute Priority: High Annotation/Comment:: Most likely due to acute heat injury and severe dehydration. We will resuscitate him initially in the emergency department and then continued in the inpatient stay with a goal urinary output of 2-300 mils every 2 hours. Qualifiers: Rhabdomyolysis type: non-traumatic Qualified Code(s): M62.82 - Rhabdomyolysis (14) Severe dehydration SNOMED Code(s): 181275576 Code(s): E86.0 - DEHYDRATION Status: Acute Priority: High Annotation/Comment:: Acute severe dehydration. Most likely due to environmental at his workplace plus I question daily fluid intake with his chronic alcohol usage. Resuscitate with fluids. Monitor closely. - Problem List Review Problem List Initiated/Reviewed/Updated: Yes - Assessment/Plan Admission H&P: Please use this note as an admission H&P Assessment:: Assessment/plan. Admit into the hospital under inpatient management due to the severe concerns above. I do not anticipate that this patient will need more than 2 days in the hospital. He will need close monitoring and following for the multiple abnormalities as above. VTE: Teds Sepsis: He does have a quite elevated lactic although I do not feel that this is infectious in nature. His white blood cell count is normal. Blood cultures are pending. Initially covered with 2 g of Rocephin in the emergency department. Urinalysis is noninfectious appearing nor is a CT of the chest concerning for infection. Covid is negative. Continue to follow. CODE STATUS full.
[2020-12-23 04:03] LABS: BARBITURATE SCREEN,URINE NEGATIVE (NEGATIVE); BENZODIAZEPINES SCREEN,URINE POSITIVE (NEGATIVE); EDDP,URINE SCREEN NEGATIVE (NEGATIVE); TCA SCREEN,URINE NEGATIVE (NEGATIVE); THC SCREEN,URINE 50 NG/ML POSITIVE (NEGATIVE)
[2020-12-23 04:06] LABS: BUPRENORPHINE SCREEN,URINE NEGATIVE (NEGATIVE)
[2020-12-23] MEDS ORDERED: Lactated Ringers 1,000 ML IV SCH (04:45)
[2020-12-23] MEDS ORDERED: NS + KCl 20mEq/L 1,000 ML IV SCH (05:30)
[2020-12-23] MEDS ORDERED: LORazepam 2 MG/ML SDV IVPUSH PRN (05:35)
[2020-12-23] MEDS ORDERED: Ondansetron 4 MG/2 ML SDV IVPUSH PRN (05:36)
[2020-12-23] MEDS: Thiamine 100 MG Tab PO SCH (07:17)
[2020-12-23] MEDS: Multivitamin Tab PO SCH (07:17)
[2020-12-23] MEDS: Folic Acid 1 MG Tab PO SCH (07:17)
[2020-12-23] MEDS ORDERED: Magnesium Oxide 400 MG Tab PO SCH (08:00)
[2020-12-23 09:00] LABS: ANION GAP 13.7 meq/L (7-15)
[2020-12-23] MEDS: Sodium Chloride 0.9% 1,000 ML IV SCH ×2 (10:48→14:59)
[2020-12-23 14:50] LABS: ANION GAP 7.1 meq/L (7-15)
[2020-12-23] MEDS ORDERED: Loperamide 2 MG Tab PO ONE (17:59)
[2020-12-23] MEDS: Diazepam 5 MG Tab PO SCH (18:11)
[2020-12-23] MEDS: Citalopram 20 MG Tab PO SCH (18:13)
[2020-12-23] MEDS ORDERED: Sodium Chloride 0.9% 1,000 ML IV SCH (21:45)
[2020-12-24 07:16] VITALS: PULSE 70
[2020-12-24] MEDS: Multivitamin Tab PO SCH (07:17)
[2020-12-24] MEDS: Folic Acid 1 MG Tab PO SCH (07:17)
[2020-12-24] MEDS: Citalopram 20 MG Tab PO SCH (07:17)
[2020-12-24] MEDS: Thiamine 100 MG Tab PO SCH (07:17)
[2020-12-24] MEDS: Diazepam 5 MG Tab PO SCH (07:18)
[2020-12-24] MEDS: Sodium Chloride 0.9% 10 ML Syringe FLUSH PRN (07:20)
[2020-12-24] MEDS ORDERED: Iopamidol 755 Mg/ML 100 ML Bottle IVPUSH ONE (07:46)
[2020-12-24 07:57] LABS: ANION GAP 10.5 meq/L (7-15); CHLORIDE,CL 105 mmol/L (98-107); SODIUM,NA 141 mmol/L (136-145)
[2020-12-24] MEDS ORDERED: SOUR CHERRY EXTRACT 1000 MG PO SCH (08:00)
[2020-12-24] MEDS ORDERED: [UNRECOGNIZED DRUG - OTHER] PO SCH (08:00)
[2020-12-24] MEDS ORDERED: Multivitamin Tab PO SCH (08:00)
[2020-12-24] MEDS ORDERED: Fish Oil/Omega-3 Fatty Acids 1 Gm Cap PO SCH (08:00)
[2020-12-24] MEDS ORDERED: Diazepam 5 MG Tab PO ONE (08:00)
[2020-12-24] MEDS ORDERED: Lisinopril 10 MG Tab PO ONE (09:05)
[2020-12-24] MEDS ORDERED: Magnesium Sulfate/D5W 1 GM/100 ML Premix Bag IV ONE (09:06)
[2020-12-24] MEDS ORDERED: Potassium Chloride 10 MEQ Tab.ER PO ONE (09:06)
[2020-12-24] MEDS ORDERED: Magnesium Sulfate/D5W 1 GM/100 ML BAG IV ONE (09:30)
[2020-12-24 09:34] VITALS: BP 160/65
[2020-12-24] MEDS ORDERED: Potassium Chloride 20 MEQ Tab.ER PO ONE (11:30)
--- NOTE | 2020-12-24 11:40 | PCM.DCSUM1 ---
Discharge Summary - Hospital Course Brief History: Patient evaluated in ER after having syncopal event at [facility]. Found to be in acute renal failure with severe dehydration. Diagnosis: Stroke: No - Discharge Data Discharge Date: 12/24/20 Discharge Disposition: Home, Self-Care 01 Condition: Good - Referral to Home Health Primary Care Physician: PCP None - Discharge Diagnosis/Problem(s) (1) Severe dehydration SNOMED Code(s): 817926440 ICD Code: E86.0 - DEHYDRATION Status: Acute Priority: High Problem Details: Acute severe dehydration. Most likely due to environmental at his workplace plus I question daily fluid intake with his chronic alcohol usage. Resuscitate with fluids. Monitor closely. (2) Lactic acidosis SNOMED Code(s): 76615107 ICD Code: E87.2 - ACIDOSIS Status: Acute Priority: High Problem Details: His lactic acidosis is most likely due to the severe hypovolemic shock. Procalcitonin is pending. CRP is negative. White blood cell count is normal. I do not see any signs of sepsis. Urinalysis is negative. Continue to monitor closely. (3) MALAIKA (acute kidney injury) SNOMED Code(s): 04619764, 30417928 ICD Code: N17.9 - ACUTE KIDNEY FAILURE, UNSPECIFIED Status: Acute Priority: High Problem Details: Initial creatinine of 3.6. Could be multifactorial in the presence of severe hypovolemic shock dehydration as well as the recent increase use of allopurinol indomethacin as well as colchicine due to his gout attacks. His uric acid in the emergency department is actually 11. 4. Which he really needs some long-term management with allopurinol. Although we will hold these medicines at this time due to his acute kidney injury. And no signs of acute gouty attack. (4) Elevated d-dimer SNOMED Code(s): 966871970 ICD Code: R79.89 - OTHER SPECIFIED ABNORMAL FINDINGS OF BLOOD CHEMISTRY Status: Acute Priority: High Problem Details: The elevated D-dimer is most likely unknown at this time. Ultrasound completed by myself and reviewed did not show any signs of lower extremity DVT. Clinical exam does not find any DVT either. He has no hallmarks signs of pulmonary embolism. Although he does not have any risk factors primarily either. Once his creatinine has normalized we will consider CT PE at that time or transfer for a VQ scan if the clinical picture is concerning for a pulmonary embolism. (5) Hypokalemia SNOMED Code(s): 24492751 ICD Code: E87.6 - HYPOKALEMIA Status: Acute Priority: High Problem Details: Initial potassium is minimally low at 3.0. This could be due to long- term alcohol usage as well as poor oral intake. We will replace him initially IV until he responds. And then we will monitor and replace orally. (6) Hypomagnesemia SNOMED Code(s): 039101490 ICD Code: E83.42 - HYPOMAGNESEMIA Status: Acute Priority: Medium Problem Details: Magnesium 1.6 upon admission will replace. and monitor. (7) Hypotension SNOMED Code(s): 91323607 ICD Code: I95.9 - HYPOTENSION, UNSPECIFIED Status: Acute Priority: High Problem Details: Hypotension most likely from severe dehydration and hypovolemic shock. Initially has resolved in the emergency department with good blood pressures in the 130s systolically. We will continue aggressive fluid resuscitation at 250 mils an hour for the prevention of acute kidney injury from rhabdomyolysis. We will monitor his electrolytes and his blood pressures closely. Do not see any signs of sepsis at this time. He was covered with an initial dose of Rocephin in the emergency department. Slight blood cell count is normal as well as his CRP. Procalcitonin is pending. Blood cultures are pending. No signs of infection on the CT of the chest in the lungs nor any signs of infection in his urine.. Qualifiers: Hypotension type: hypotension due to hypovolemia Qualified Code(s): I95.89 - Other hypotension; E86.1 - Hypovolemia (8) Rhabdomyolysis SNOMED Code(s): 395248944 ICD Code: M62.82 - RHABDOMYOLYSIS Status: Acute Priority: High Problem Details: Most likely due to acute heat injury and severe dehydration. We will resuscitate him initially in the emergency department and then continued in the inpatient stay with a goal urinary output of 2-300 mils every 2 hours. Qualifiers: Rhabdomyolysis type: non-traumatic Qualified Code(s): M62.82 - Rhabdomyolysis (9) Syncope and collapse SNOMED Code(s): 190504654 ICD Code: R55 - SYNCOPE AND COLLAPSE Status: Acute Priority: High Problem Details: Working in very hot environment at [facility]. Suspect combination of heat illness and dehydration. Although his D Dimer is elevated he does not have the hallmark signs of chest pain shortness of breath hypoxia tachypnea and tachycardia. We will consider a PE scan once kidney function has improved or transfer if the symptoms do develop or nonresponsive hypokalemia. Monitor closely. Telemetry. (10) Anxiety SNOMED Code(s): 16116276 ICD Code: F41.9 - ANXIETY DISORDER, UNSPECIFIED Status: Chronic Priority: Medium Problem Details: No sign of anxiety in the emergency department. He is on Valium chronically for his anxiety. He is also looking at getting a medical marijuana card. I do not see any medication such as SSRIs or other antidepr essants which would be more appropriate for long-term management of anxiety. Stable at this time consider follow-up with primary care. (11) Gout SNOMED Code(s): 23390912 ICD Code: M10.9 - GOUT, UNSPECIFIED Status: Chronic Priority: Medium Problem Details: Patient recently had a acute gouty attack. He has been placed on allopurinol indomethacin as well as colchicine. This could be an aspect of his acute kidney injury as well. His uric acid is quite elevated 11.4. At this time we will hold these medications he is not exhibiting any signs of an acute gouty attack. Considered reinitiation of the allopurinol upon discharge once clinical situation has improved. Qualifiers: Gout site: unspecified site Gout etiology: unspecified cause Chronicity: unspecified Qualified Code(s): M10.9 - Gout, unspecified (12) Hypertension SNOMED Code(s): 38838419 ICD Code: I10 - ESSENTIAL (PRIMARY) HYPERTENSION Status: Chronic Priority: Medium Problem Details: Held patient's lisinopril at this time due to hypotension as well as acute kidney injury. Restarted today 12/24 Qualifiers: Hypertension type: primary hypertension Qualified Code(s): I10 - Essential (primary) hypertension (13) Mixed anxiety depressive disorder SNOMED Code(s): 692927425 ICD Code: F41.8 - OTHER SPECIFIED ANXIETY DISORDERS Status: Chronic Priority: Medium Problem Details: Stable. Continue to observe closely with his regular provider (14) Osteoarthritis SNOMED Code(s): 200878987 ICD Code: M19.90 - UNSPECIFIED OSTEOARTHRITIS, UNSPECIFIED SITE Status: Chronic Priority: Medium Problem Details: Otherwise stable by patient history Qualifiers: Osteoarthritis location: multiple joints Osteoarthritis type: primary Qualified Code(s): M89.49 - Other hypertrophic osteoarthropathy, multiple sites - Patient Summary/Data Hospital Course: Patient responded well to all of the above with aggressive IV fluids/potassium and Mag supplementation. Creatinine level normalized. CK continues to improve. Lactic acid normalized. DDimer improved. No evidence of DVT/PE noted on exam and studies. Does have some AST elevation and blood alcohol noted to be 0.083 (normal level is up to 0.08) and time spent reviewing patient's ETOH use. He denies daily use and no evidence of withdrawal/dependence noted during stay. Elevated level may also have fatty liver component. Patient recommended to avoid ETOH use in light of the above and also given Benzo prescription. K and Mag levels improved but still low. Will have patient continue supplementation until he is seen by PCP next week and has levels rechecked. Patient agreeable with plan. To return for re-eval over weekend if he has any problems. - Patient Instructions Diet: Usual Diet as Tolerated Activity: As Tolerated Showering/Bathing: May Shower Other/Special Instructions: Follow up Sunday with Dr. Mckeon in [place] at 2pm. Get your blood levels rechecked: CBC/Chem/Magnesium. Discuss with her if you need to continue potassium supplement. Stay hydrated/take it easy. Avoid alcohol use. Return to ER if you have problems over the weekend. - Discharge Plan *PRESCRIPTION DRUG MONITORING PROGRAM REVIEWED*: Not Applicable *COPY OF PRESCRIPTION DRUG MONITORING REPORT IN PATIENT CARSON: Not Applicable Prescriptions/Med Rec: Potassium Chloride [Klor-Con 10] 20 meq PO BID #12 tablet.er Magnesium Glycinate, Mag Oxide [Magnesium Glycinate] 120 mg PO DAILY #90 capsule Home Medications: Home Meds Lisinopril 10 mg PO DAILY 10/08/14 [History] Cyclobenzaprine [Flexeril] 10 mg PO TID PRN #30 tablet 11/03/15 [Rx] Cholecalciferol (Vitamin D3) [Vitamin D3] 1,000 unit PO DAILY 12/23/20 [History] Citalopram Hydrobromide [Celexa] 40 mg PO DAILY 12/23/20 [History] Colchicine 0.6 mg PO DAILY PRN 12/23/20 [History] Fish Oil/[place]-3 Fatty Acids [Fish Oil 1,000 MG] 1 cap PO DAILY 12/23/20 [History] Multivitamin [Multivitamins] 1 tab PO DAILY 12/23/20 [History] Sour Galindo Extract [Tart Galindo Extract] 1 cap PO DAILY 12/23/20 [History] allopurinoL [Zyloprim] 100 mg PO DAILY 12/23/20 [History] diazePAM [Valium] 10 mg PO BID 12/23/20 [History] Magnesium Glycinate, Mag Oxide [Magnesium Glycinate] 120 mg PO DAILY #90 capsule 12/24/20 [Rx] Potassium Chloride [Klor-Con 10] 20 meq PO BID #12 tablet.er 12/24/20 [Rx] Forms: ED Department Discharge Referrals: PCP,None [Primary Care Provider] - - Discharge Summary/Plan Comment DC Time >30 min.: No Total # of Minutes for Discharge Time: 30 - General Info Date of Service: 12/24/20 Admission Dx/Problem (Free Text: Severe dehydration/overheating/acute kidney injury Subjective Update: Patient feels well/back to baseline Functional Status: Reports: Pain Controlled, Tolerating Diet, Ambulating, Urinating. Denies: New Symptoms - Review of Systems General: Reports: No Symptoms HEENT: Reports: No Symptoms Pulmonary: Reports: No Symptoms Cardiovascular: Reports: No Symptoms Gastrointestinal: Reports: No Symptoms Genitourinary: Reports: No Symptoms Musculoskeletal: Reports: Other (no acute changes from baseline) Skin: Reports: No Symptoms Neurological: Reports: No Symptoms Psychiatric: Reports: No Symptoms - Patient Data Vitals - Most Recent: Last Vital Signs Temp 37.1 C 12/24/20 07:13 Pulse 70 12/24/20 07:13 Resp 18 12/24/20 07:13 BP 160/65 H 12/24/20 09:33 Pulse Ox 95 12/24/20 07:13 Weight - Most Recent: 108.862 kg I&O - Last 24 hours: Intake & Output 12/23/20 12/24/20 12/24/20 22:59 06:59 14:59 Intake Total 3940 1786 540 Output Total 1700 2600 1000 Balance 9050 -460 -820 Lab Results - Last 24 hrs: Laboratory Results - last 24 hr 12/23/20 12/23/20 12/24/20 Range/Units 13:57 13:57 06:57 WBC (4.0-10.2) K/uL RBC (4.33-5.41) M/uL Hgb (13.1-16.8) g/dL Hct (39.0-49.0) % MCV (84.0-98.0) fL MCH (28.2-33.3) pg MCHC (31.7-36.0) g/dL RDW (11.2-14.1) % Plt Count (150-350) K/uL Neut % (Auto) (45.0-80.0) % Lymph % (Auto) (10.0-50.0) % [place] % (Auto) (2.0-14.0) % Eos % (Auto) (0.0-5.0) % Baso % (Auto) (0.0-2.0) % Neut # (Auto) (1.40-7.00) K/uL Lymph # (Auto) (0.50-3.50) K/uL [place] # (Auto) (0.00-1.00) K/uL Eos # (Auto) (0.00-0.50) K/uL Baso # (Auto) (0.00-0.20) K/uL D-Dimer, Quantitative (0-400) ng/mL Sodium 139 141 (136-145) mmol/L Potassium 3.8 3.2 L (3.5-5.1) mmol/L Chloride 103 105 (98-107) mmol/L Carbon Dioxide 28.9 28.7 (21.0-32.0) mmol/L Anion Gap 7.1 10.5 (7-15) meq/L BUN 16 8 (7-18) mg/dL Creatinine 1.35 H 1.02 (0.51-1.17) mg/dL Est Cr Clr Drug Dosing 63.71 84.32 mL/min Estimated GFR (MDRD) 54 > 60 mL/min Glucose 145 H 117 H (70-99) mg/dL Lactic Acid 1.0 (0.4-2.0) mmol/L Calcium 9.5 8.4 L (8.5-10.1) mg/dL Magnesium 1.7 L (1.8-2.4) mg/dL Total Bilirubin 0.5 (0.2-1.0) mg/dL AST 64 H (15-37) U/L ALT 58 (12-78) U/L Alkaline Phosphatase 43 L (46-116) IU/L Creatine Kinase 1539 H 1094 H (26-308) U/L Total Protein 6.1 L (6.4-8.2) g/dL Albumin 3.3 L (3.4-5.0) g/dL 12/24/20 12/24/20 12/24/20 Range/Units 06:57 06:57 06:57 WBC 4.3 (4.0-10.2) K/uL RBC 3.85 L (4.33-5.41) M/uL Hgb 12.5 L D (13.1-16.8) g/dL Hct 35.7 L (39.0-49.0) % MCV 92.7 (84.0-98.0) fL MCH 32.5 (28.2-33.3) pg MCHC 35.0 (31.7-36.0) g/dL RDW 12.1 (11.2-14.1) % Plt Count 120 L D (150-350) K/uL Neut % (Auto) 54.6 (45.0-80.0) % Lymph % (Auto) 30.4 (10.0-50.0) % [place] % (Auto) 11.2 (2.0-14.0) % Eos % (Auto) 3.3 (0.0-5.0) % Baso % (Auto) 0.5 (0.0-2.0) % Neut # (Auto) 2.34 (1.40-7.00) K/uL Lymph # (Auto) 1.30 (0.50-3.50) K/uL [place] # (Auto) 0.48 (0.00-1.00) K/uL Eos # (Auto) 0.14 (0.00-0.50) K/uL Baso # (Auto) 0.02 (0.00-0.20) K/uL D-Dimer, Quantitative 1880 H (0-400) ng/mL Sodium (136-145) mmol/L Potassium (3.5-5.1) mmol/L Chloride (98-107) mmol/L Carbon Dioxide (21.0-32.0) mmol/L Anion Gap (7-15) meq/L BUN (7-18) mg/dL Creatinine (0.51-1.17) mg/dL Est Cr Clr Drug Dosing mL/min Estimated GFR (MDRD) mL/min Glucose (70-99) mg/dL Lactic Acid 0.8 (0.4-2.0) mmol/L Calcium (8.5-10.1) mg/dL Magnesium (1.8-2.4) mg/dL Total Bilirubin (0.2-1.0) mg/dL AST (15-37) U/L ALT (12-78) U/L Alkaline Phosphatase (46-116) IU/L Creatine Kinase (26-308) U/L Total Protein (6.4-8.2) g/dL Albumin (3.4-5.0) g/dL JAJA Results - Last 24 hrs: Microbiology 12/23/20 03:45 Aerobic Blood Culture - Preliminary Blood - Venous - Lab Draw NO GROWTH AFTER 1 DAY Anaerobic Blood Culture - Preliminary NO GROWTH AFTER 1 DAY 12/23/20 03:25 Aerobic Blood Culture - Preliminary Blood - Venous NO GROWTH AFTER 1 DAY Anaerobic Blood Culture - Preliminary NO GROWTH AFTER 1 DAY Med Orders - Current: Current Medications Cholecalciferol (Cholecalciferol (Vitamin D3) 25 Mcg Tab) 25 mcg PO DAILY [facility] Citalopram Hydrobromide (Citalopram 20 Mg Tab) 40 mg PO DAILY [facility] Last Admin: 12/24/20 07:17 Dose: 40 mg Documented by: Diazepam (Diazepam 5 Mg Tab) 10 mg PO BID [facility] Stop: 12/26/20 01:00 Last Admin: 12/24/20 07:18 Dose: 10 mg Documented by: Fish Oil (Fish Oil/[place]-3 Fatty Acids 1 Gm Cap) 1 gm PO DAILY [facility] Last Admin: 12/24/20 07:17 Dose: 1 gm Documented by: Folic Acid (Folic Acid 1 Mg Tab) 1 mg PO DAILY [facility] Last Admin: 12/24/20 07:17 Dose: 1 mg Documented by: Sodium Chloride (Normal Saline) 1,000 mls @ 60 mls/hr IV ASDIRECTED [facility] Last Admin: 12/23/20 22:25 Dose: 60 mls/hr Documented by: Lorazepam (Lorazepam 2 Mg/Ml Sdv) 1 mg IVPUSH Q4H PRN PRN Reason: Withdrawal Symptoms Multivitamins/Minerals/Vitamin C (Multivitamin Tab) 1 tab PO DAILY [facility] Last Admin: 12/24/20 09:09 Dose: Not Given Documented by: Non-Formulary Medication (Sour Galindo Extract [Tart Galindo Extract]) 1 cap PO DAILY [facility] Ondansetron HCl (Ondansetron 4 Mg/2 Ml Sdv) 4 mg IVPUSH Q6H PRN PRN Reason: Nausea/Vomiting Potassium Chloride (Potassium Chloride 20 Meq Tab.Er) 40 meq PO ONETIME ONE Stop: 12/24/20 11:31 Sodium Chloride (Sodium Chloride 0.9% 10 Ml Syringe) 10 ml FLUSH ASDIRECTED PRN PRN Reason: Keep Vein Open Last Admin: 12/24/20 07:20 Dose: 10 ml Documented by: Thiamine HCl (Thiamine 100 Mg Tab) 100 mg PO DAILY [facility] Last Admin: 12/24/20 07:17 Dose: 100 mg Documented by: Discontinued Medications Ceftriaxone Sodium (Ceftriaxone 2 Gm Vial) 2 gm IVPUSH NOW STA Stop: 12/23/20 02:36 Last Admin: 12/23/20 02:47 Dose: 2 gm Documented by: Diazepam (Diazepam 5 Mg Tab) 5 mg PO ONETIME ONE Stop: 12/24/20 08:01 Lactated Ringer's (Ringers, Lactated) 1,000 mls @ 1,000 mls/hr IV .BOLUS ONE Stop: 12/23/20 02:34 Last Admin: 12/23/20 02:46 Dose: 1,000 mls/hr Documented by: Lactated Ringer's (Ringers, Lactated) 1,000 mls @ 1,000 mls/hr IV .BOLUS ONE Stop: 12/23/20 02:41 Last Admin: 12/23/20 02:46 Dose: 1,000 mls/hr Documented by: Potassium Chloride 10 meq/ (Premix) 50 mls @ 50 mls/hr IV ONETIME ONE Stop: 12/23/20 03:16 Last Admin: 12/23/20 02:47 Dose: 50 mls/hr Documented by: Lactated Ringer's (Ringers, Lactated) 1,000 mls @ 1,000 mls/hr IV .BOLUS ONE Stop: 12/23/20 03:25 Last Admin: 12/23/20 02:47 Dose: 1,000 mls/hr Documented by: Lactated Ringer's (Ringers, Lactated) 1,000 mls @ 200 mls/hr IV ASDIRECTED [facility] Last Admin: 12/23/20 04:00 Dose: 200 mls/hr Documented by: Potassium Chloride/Sodium Chloride (Normal Saline With 20 Meq Kcl) 1,000 mls @ 250 mls/hr IV ASDIRECTED [facility] Last Admin: 12/23/20 06:06 Dose: 250 mls/hr Documented by: Sodium Chloride (Normal Saline) 1,000 mls @ 100 mls/hr IV ASDIRECTED [facility] Last Admin: 12/23/20 14:59 Dose: 250 mls/hr Documented by: Magnesium Sulfate/Dextrose 1 (gm/ Premix) 100 mls @ 100 mls/hr IV ONETIME ONE Stop: 12/23/20 18:18 Last Admin: 12/23/20 18:12 Dose: 100 mls/hr Documented by: Magnesium Sulfate/Dextrose 1 (gm/ Premix) 100 mls @ 100 mls/hr IV ONETIME ONE Stop: 12/23/20 21:59 Last Admin: 12/23/20 20:52 Dose: 100 mls/hr Documented by: Magnesium Sulfate/Dextrose (Magnesium Sulfate In D5w 1 Gm/100 Ml) 1 gm in 100 mls @ 100 mls/hr IV ONETIME ONE Stop: 12/24/20 10:29 Last Admin: 12/24/20 09:33 Dose: 100 mls/hr Documented by: Iopamidol (Iopamidol 755 Mg/Ml 100 Ml Bottle) 100 ml IVPUSH ONETIME ONE Stop: 12/24/20 07:47 Last Admin: 12/24/20 09:00 Dose: 100 ml Documented by: Lisinopril (Lisinopril 10 Mg Tab) 10 mg PO ONETIME ONE Stop: 12/24/20 09:06 Last Admin: 12/24/20 09:33 Dose: 10 mg Documented by: Loperamide HCl (Loperamide 2 Mg Tab) 4 mg PO ONETIME ONE Stop: 12/23/20 18:00 Last Admin: 12/23/20 18:19 Dose: 4 mg Documented by: Magnesium Oxide (Magnesium Oxide 400 Mg Tab) 800 mg PO DAILY [facility] Last Admin: 12/23/20 07:17 Dose: 800 mg Documented by: Multivitamins/Minerals/Vitamin C (Multivitamin Tab) 1 tab PO DAILY [facility] Last Admin: 12/24/20 07:17 Dose: 1 tab Documented by: Potassium Chloride (Potassium Chloride 10 Meq Tab.Er) 40 meq PO ONETIME ONE Stop: 12/24/20 09:07 Last Admin: 12/24/20 09:33 Dose: 40 meq Documented by: - Exam General: Reports: Alert, Oriented, Cooperative, No Acute Distress HEENT: Reports: Pupils Equal, Pupils Reactive, EOMI, Mucous Membr. Moist/[place]: Reports: Supple Lungs: Reports: Clear to Auscultation, Normal Respiratory Effort Cardiovascular: Reports: Regular Rate, Regular Rhythm GI/Abdominal Exam: Soft, Non-Tender (Male) Exam: Deferred Rectal (Males) Exam: Deferred Back Exam: Denies: CVA Tenderness (L), CVA Tenderness (R), Muscle Spasm Extremities: Normal Range of Motion, Normal Capillary Refill Skin: Reports: Warm, Dry Neurological: Reports: No New Focal Deficit Psy/Mental Status: Reports: Alert, Normal Affect, Normal Mood
[2020-12-24] MEDS ORDERED: Cholecalciferol (Vitamin D3) 25 MCG Tab PO SCH (18:00)
== END 2020-12-24 12:20 | disposition home or self-care (01) | DRG 469 ==
LOC: LL.ED 01:26 → LL.MS 05:24
PROVIDERS: ADMIT Nurse Practitioner Family; ATTEND Nurse Practitioner Family
DX: N17.9 Acute kidney failure, unspecified (principal); E86.0 Dehydration; R57.1 Hypovolemic shock; E87.6 Hypokalemia; E83.42 Hypomagnesemia; M62.82 Rhabdomyolysis; M10.9 Gout, unspecified; R79.89 Other specified abnormal findings of blood chemistry; Z20.822 Contact with and (suspected) exposure to COVID-19; F41.9 Anxiety disorder, unspecified; F41.8 Other specified anxiety disorders; M89.49 Other hypertrophic osteoarthropathy, multiple sites; K76.0 Fatty (change of) liver, not elsewhere classified; H54.7 Unspecified visual loss; M54.9 Dorsalgia, unspecified; G89.29 Other chronic pain; I10 Essential (primary) hypertension; F10.129 Alcohol abuse with intoxication, unspecified; T50.4X5A Adverse effect of drugs affecting uric acid metabolism, initial encounter; T39.395A Adverse effect of other nonsteroidal anti-inflammatory drugs [NSAID], initial encounter; Z88.0 Allergy status to penicillin; Z87.891 Personal history of nicotine dependence; Z88.5 Allergy status to narcotic agent; Z79.899 Other long term (current) drug therapy
CPT/HCPCS: 36415; 71250; 71275; 74176; 80048; 80053; 80305-QW; 80307; 81001; 82550; 83605; 83735; 84484; 84550; 85025; 85379; 85610; 85730; 86140; 87040; 93005; 96365; 96375; 99223; 99238; 99284; 99285-25; A9270-GY; J0696; J3475; J3480; J7030; J7120; Q9967; U0002